=== PATIENT | female | born 1975 | race Caucasian/White ===

== ENCOUNTER 2019-08-01 20:09 | Emergency (ER) | payer OTHER ==
[~2019-08-01] VITALS: Ht 157.5 cm; Wt 104.3 kg
[2019-08-01] MEDS ORDERED: ZYPREXA20 MG (20:34)
[2019-08-01] MEDS ORDERED: CLONAZEPAM2 MG (20:35)
[2019-08-01] MEDS ORDERED: RESTORIL30 M1 (20:35)
== END 2019-08-01 22:22 | disposition home or self-care (01) ==
LOC: ER 20:09
DX: R42 Dizziness and giddiness (principal); F31.81 Bipolar II disorder

== ENCOUNTER → 2019-08-05 | Outpatient (CLI) | payer OTHER ==
[~2019-08-05] MED LIST: CLONAZEPAM2 MG; RESTORIL30 M1; ZYPREXA20 MG
== END | disposition home or self-care (01) ==
LOC: NUCLEAR 09:36
PROVIDERS: ATTEND Internal Medicine Hematology & Oncology
DX: I87.2 Venous insufficiency (chronic) (peripheral) (principal)

== ENCOUNTER 2019-10-28 07:56 | Outpatient (CLI) | payer OTHER | END 2019-10-28 08:04 | disposition home or self-care (01) | LOC: SONOGRAMA 07:56 → MAMO-SONO 08:15 | DX: N18.3 Chronic kidney disease, stage 3 (moderate) (principal); N14.3 Nephropathy induced by heavy metals ==

== ENCOUNTER 2020-05-13 15:32 | Outpatient (CLI) | payer OTHER | END 2020-05-13 15:40 | disposition home or self-care (01) | LOC: SONOGRAMA 15:32 | DX: N28.89 Other specified disorders of kidney and ureter (principal); N14.2 Nephropathy induced by unspecified drug, medicament or biological substance ==

== ENCOUNTER 2020-07-01 08:00 | Outpatient (CLI) | payer OTHER | END 2020-07-01 08:30 | disposition home or self-care (01) | LOC: PPH VACUNA 08:00 | DX: Z23 Encounter for immunization (principal) ==